=== PATIENT | female | born 1995 | race Caucasian/White ===

== ENCOUNTER → 2016-12-26 | Outpatient (CLI) | payer BC ==
[~2016-12-26] MED LIST: ALDACTONE50 MG PO; ATIVAN1 MG PO; PRILOSEC 20MG20 MG PO; REQUIP0.5 MG PO; [UNRECOGNIZED DRUG - OTHER] PO
== END ==
LOC: RAD 07:58
DX: M25.531 Pain in right wrist (principal); M67.431 Ganglion, right wrist

== ENCOUNTER → 2017-01-30 | Outpatient (CLI) | payer BC ==
[2015-03-21 18:45] VITALS: BP 111/44
== END ==
LOC: RAD 12:54
DX: M79.652 Pain in left thigh (principal)